=== PATIENT | female | born 1950 | race African-American/Black ===

== ENCOUNTER 2020-11-30 10:35 | Outpatient (REF) | payer MEDICARE, SELFPAY | END 2020-11-30 10:36 | disposition home or self-care (01) | LOC: HO.LAB 10:35 | PROVIDERS: Visit Provider Internal Medicine | DX: Z20.822 Contact with and (suspected) exposure to COVID-19 (principal) | CPT/HCPCS: 36415; C9803; U0003; U0005 ==

== ENCOUNTER 2021-06-14 10:04 | Outpatient (REF) | payer MEDICARE, SELFPAY | END 2021-06-14 10:05 | disposition home or self-care (01) | LOC: HO.LAB 10:04 | PROVIDERS: PCP Internal Medicine; Visit Provider Internal Medicine | DX: Z20.822 Contact with and (suspected) exposure to COVID-19 (principal) | CPT/HCPCS: C9803; U0003; U0005 ==